=== PATIENT | female | born 1985 | race Caucasian/White ===

== ENCOUNTER 2017-03-20 23:59 | Emergency (ER) | payer OTHER ==
[2017-03-21 01:51] VITALS: BP 115/72
== END 2017-03-21 01:51 | disposition home or self-care (01) ==
LOC: ED 23:59
DX: K80.70 Calculus of gallbladder and bile duct without cholecystitis without obstruction (principal)
CPT/HCPCS: Q0162

== ENCOUNTER 2017-03-24 19:10 | Inpatient (IN) | payer OTHER ==
[~2017-03-24] VITALS: Ht 165.1 cm; Wt 67.7 kg
[2017-03-24 19:48] LABS: microscopic required? NO
[2017-03-24 19:59] LABS: urine erythrocyte NEGATIVE (NEGATIVE)
[2017-03-24 20:16] LABS: BASOPHIL % 0.5 % (0-2); PLATELET COUNT 283 x10^3mcL (130-400); RED CELL DISTRIBUTION WIDTH 13.4 % (11.5-14.5)
[2017-03-24 20:24] LABS: CALCIUM 8.6 mg/dL (8.5-10.1); CARBON DIOXIDE 28.2 mmol/L (21-32); CHLORIDE SERUM 102 mmol/L (98-107); CREATININE SERUM 0.5 mg/dL (0.6-1.0); GFR1 > 60 mL/min; GLUCOSE SERUM 89 mg/dL (74-106); POTASSIUM SERUM 3.6 mmol/L (3.5-5.1); SODIUM SERUM 139 mmol/L (136-145)
[2017-03-24 20:30] LABS: ALBUMIN 3.7 g/dL (3.4-5.0); ALKALINE PHOSPHATASE 247 U/L (46-116); ALT/SGPT 251 U/L (14-59); AST/SGOT 121 U/L (15-37); BILIRUBIN TOTAL 2.3 mg/dL (0.20-1.00); CHOLESTEROL 198 mg/dL (<200); LIPASE 165 IU/L (73-393); TOTAL PROTEIN, SERUM 7.8 g/dL (6.4-8.2); TRIGLYCERIDES 53 mg/dL (<150)
[2017-03-24 20:31] LABS: CHOLESTEROL/HDL RATIO 2.1; HDL CHOLESTEROL 93 mg/dL (40-60)
[2017-03-24 20:40] LABS: FREE T4 1.09 ng/dL (0.76-1.46); FREE THYROXINE INDEX 3.3 ug/dL (1.4-4.5); T4(THYROXINE) 8.9 ug/dL (4.7-13.3)
[2017-03-24 20:46] LABS: T3 TOTAL 0.87 ng/mL
[2017-03-24] MEDS ORDERED: NORCO1 TA2 PO (21:27)
[2017-03-24 22:08] VITALS: BP 118/80
[2017-03-24 22:14] VITALS: BP 116/80
[2017-03-25 02:13] LABS: MAGNESIUM 1.9 mg/dL (1.8-2.4); PHOSPHOROUS 3.6 mg/dL (2.5-4.9)
[2017-03-25 04:48] LABS: AMPHETAMINE QUAL UR NONE DETECTED (NEG <=1000)
[2017-03-25 05:21] VITALS: BP 114/71
[2017-03-25 11:10] VITALS: BP 125/81
[2017-03-25 13:10] VITALS: BP 122/76
[2017-03-25 13:40] VITALS: BP 126/76
[2017-03-25 17:40] VITALS: BP 142/86
[2017-03-25 21:42] VITALS: BP 137/90
[2017-03-26 04:44] VITALS: BP 114/68
[2017-03-26 06:31] LABS: ALKALINE PHOSPHATASE 196 U/L (46-116); ALT/SGPT 151 U/L (14-59); AST/SGOT 78 U/L (15-37); BILIRUBIN DIRECT 3.32 mg/dL (0.0-0.2); CARBON DIOXIDE 25.2 mmol/L (21-32); CHLORIDE SERUM 106 mmol/L (98-107); CREATININE SERUM 0.5 mg/dL (0.6-1.0); GFR1 > 60 mL/min; GLUCOSE SERUM 88 mg/dL (74-106); POTASSIUM SERUM 3.8 mmol/L (3.5-5.1); SODIUM SERUM 138 mmol/L (136-145)
[2017-03-26 06:34] LABS: ALBUMIN 2.6 g/dL (3.4-5.0); TOTAL PROTEIN, SERUM 5.9 g/dL (6.4-8.2)
[2017-03-26 07:59] LABS: BASOPHIL % 0.4 % (0-2); PLATELET COUNT 228 x10^3mcL (130-400); RED CELL DISTRIBUTION WIDTH 13.9 % (11.5-14.5)
[2017-03-26 09:56] VITALS: BP 134/85
[2017-03-26] MEDS ORDERED: MOT600 PO (13:54)
[2017-03-26] MEDS ORDERED: APAP/HYDROCODON1 T13 PO (13:55)
[2017-03-26 14:15] VITALS: BP 134/85
[2017-03-26] MEDS ORDERED: COL100 PO (15:07)
[2017-03-26 16:46] VITALS: BP 124/76
[2017-03-26] MEDS ORDERED: ZOFRAN8 MG PO (17:05)
[2017-03-26 19:30] VITALS: BP 145/85
[2017-03-26 21:43] VITALS: BP 111/70
[2017-03-27 04:40] VITALS: BP 112/64
[2017-03-27 06:33] LABS: BASOPHIL % 0.5 % (0-2); PLATELET COUNT 237 x10^3mcL (130-400); RED CELL DISTRIBUTION WIDTH 14.5 % (11.5-14.5)
[2017-03-27 06:59] LABS: ALKALINE PHOSPHATASE 204 U/L (46-116); ALT/SGPT 137 U/L (14-59); AST/SGOT 67 U/L (15-37); BILIRUBIN TOTAL 2.4 mg/dL (0.20-1.00); CALCIUM 8.1 mg/dL (8.5-10.1); CARBON DIOXIDE 26.1 mmol/L (21-32); CHLORIDE SERUM 106 mmol/L (98-107); CREATININE SERUM 0.5 mg/dL (0.6-1.0); GFR1 > 60 mL/min; GLUCOSE SERUM 81 mg/dL (74-106); POTASSIUM SERUM 3.8 mmol/L (3.5-5.1); SODIUM SERUM 140 mmol/L (136-145); TOTAL PROTEIN, SERUM 6.2 g/dL (6.4-8.2)
[2017-03-27 07:02] LABS: ALBUMIN 2.7 g/dL (3.4-5.0); AMYLASE 299 U/L (25-115)
[2017-03-27 07:03] LABS: LIPASE 2102 IU/L (73-393)
[2017-03-27 09:56] VITALS: BP 116/75
[2017-03-27 16:36] VITALS: BP 116/75
[2017-03-27 18:43] VITALS: BP 101/43
== END 2017-03-27 19:45 | disposition home or self-care (01) | DRG 263 ==
LOC: ED 19:10 → MU 21:23 → DU 21:23 → MU 03-26 04:21
PROVIDERS: Specialist; Student in an Organized Health Care Education/Training Program; Surgery; ADMIT Family Medicine
PROC: BF001ZZ Plain Radiography of Bile Ducts using Low Osmolar Contrast (ICD-10-PCS; 2017-03-25)
PROC: 0X950ZX Drainage of Left Axilla, Open Approach, Diagnostic (ICD-10-PCS; 2017-03-25)
PROC: 0FT44ZZ Resection of Gallbladder, Percutaneous Endoscopic Approach (ICD-10-PCS; principal; 2017-03-25 08:00)
DX: K80.20 Calculus of gallbladder without cholecystitis without obstruction (principal); E43 Unspecified severe protein-calorie malnutrition; Z68.24 Body mass index [BMI] 24.0-24.9, adult; D64.9 Anemia, unspecified; E80.6 Other disorders of bilirubin metabolism
CPT/HCPCS: 83880; 84439; 94150; C1887; J0330; J0696; J1170; J1885; J2250; J2270; J2405; J2543; J2704; J2710; J3010; J3490; J7030; J7120; Q0092; Q9967

== ENCOUNTER 2017-08-01 14:33 | Emergency (ER) | payer OTHER ==
[~2017-08-01] VITALS: Ht 165.1 cm; Wt 83.0 kg
[~2017-08-01 14:33] MED LIST: APAP/HYDROCODON1 T13 PO; COL100 PO; MOT600 PO; NORCO1 TA2 PO; ZOFRAN8 MG PO
[2017-08-01 15:27] VITALS: Ht 165.1 cm; Wt 83.0 kg
[2017-08-01 16:33] VITALS: BP 139/85
== END 2017-08-01 16:33 | disposition left against medical advice (07) ==
LOC: ED 14:33
DX: Z53.21 Procedure and treatment not carried out due to patient leaving prior to being seen by health care provider (principal)